=== PATIENT | male | born 1945 | race Caucasian/White ===

== ENCOUNTER 2025-09-13 13:03 | Emergency (ER) | payer MEDICARE, SELFPAY ==
[2025-09-13] VITALS (20 sets, daily range): BP systolic 125–148; BP diastolic 76–80; PULSE 63–90; RESP 14–20; TEMP 37.4; O2SAT 88–97; BMI 26.5
--- NOTE | 2025-09-13 13:23 | ED.BACK ---
HPI - Back Pain/Injury General Time Seen by Provider: 13:23 Date Seen: 09/13/25 Chief Complaint: Back Injury/Pain Stated Complaint: fell on 09/09 - back pain Time Seen by Provider: 09/13/25 13:18 Source: patient, family, RN notes reviewed and old records reviewed Mode of arrival: ambulatory Limitations: no limitations History of Present Illness HPI Narrative: Case is a very pleasant 80-year-old gentleman currently on baby aspirin and amlodipine who comes to the emergency room for evaluation regarding ongoing back pain after a fall. Case notes that he was up in the attic and slipped and when he fell he landed on his back and did hit his head. He had no loss of consciousness and does have a little scrape on his head. Denies any neck pain today. Unfortunately, he has had continued significant back pain. In the initial days after the injury on September 09 that he had difficulty with bowel movements. He has now been on a stool softener and did have many bowel movements yesterday and today. He denies lower extremity numbness or tingling. He has not had fever or chills. Has not noticed any blood in his urine. Any movement greatly increases his discomfort and standing also causes him significant pain. He is accompanied by his and daughter here today. He did take an oxycodone 5 mg last night. He has not had any pain medication today. Related Data Home Medications ?Medication ?Instructions ?Recorded ?Confirmed amlodipine 10 mg tablet 10 mg PO DAILY 09/13/25 09/13/25 ibuprofen 600 mg tablet 600 mg PO 3XD 09/13/25 09/13/25 oxycodone 5 mg tablet mg PO 09/13/25 senna-docusate sodium tablet tab PO 09/13/25 Allergies Allergy/AdvReac Type Severity Reaction Status Date / Time No Known Drug Allergies Allergy Verified 09/13/25 13:17 Review of Systems Status of ROS: Reports: 10 or more systems reviewed and unremarkable except as noted in History and below Const: Denies: fever or chills Eyes: Denies: change in vision ENMT: Denies: neck pain or throat swelling Cardio: Denies: chest pain, lightheadedness or shortness of breath with exertion Resp: Denies: shortness of breath or cough GI: Reports: constipation; Denies: abdominal pain, nausea, vomiting or blood in stool : Denies: painful urination Musculo: Reports: back pain; Denies: neck pain, extremity pain, extremity swelling or joint pain Neuro: Denies: headache, numbness in extremities or weakness in extremities Allergy/Immuno: Denies: throat swelling Exam Narrative: Exam Narrative: Alert and oriented. Detailed in his explanation of the fall. Slight right eyelid droop. EOM is full. Face otherwise symmetrical. On the parietal scalp he has a superficial scab. No surrounding step-offs. Mid no midline cervical tenderness, range of motion is full. Heart with regular rate and rhythm and lungs are clear. Abdomen is soft nontender. Lower extremities show symmetrical strength bilaterally palpation of the back shows pain with palpation over the T10-11 12 area less so over L1-L2. Also has right flank tenderness. At this time unable to set him up to do the exam because of discomfort. Will need to visualize this area as well. Const: Vital Signs, click to edit/add: Vital Signs - 24 hr 09/13/25 13:19 09/13/25 15:20 09/13/25 15:45 Temperature 99.4 F Pulse Rate [Pulse Oximeter] 90 77 Respiratory Rate 20 16 Blood Pressure [Ri ght Upper Arm] 148/80 H 125/76 Pulse Oximetry 96 92 88 Oxygen Delivery Me thod Room Air Room Air Room Air Oxygen Flow Rate 09/13/25 15:55 09/13/25 17:20 Temperature Pulse Rate [Pulse Oximeter] 80 Respiratory Rate 14 Blood Pressure [Ri ght Upper Arm] 135/77 Pulse Oximetry 96 96 Oxygen Delivery Me thod Nasal Cannula Nasal Cannula Oxygen Flow Rate 2 2 Documenting provider has reviewed patient's vital signs: yes Course Course ED Course: Differential diagnosis includes but is not limited to thoracic fracture, lumbar fracture, renal injury, subdural hematoma. Have significant concerns regarding a thoracic fracture with retropulsion as patient has been experiencing constipation. Pain is also increased with standing. Will place IV, do a head CT, chest abdomen and pelvis with contrast as well as check labs to include CBC and comprehensive. Will also check urinalysis. Patient requesting pain medication. He did take 5 mg of oxycodone last night this he did bring a tablet from home and he will take this now. Reevaluation(s) Reevaluation #1: unfortunately, CT does show 25% L1 compression fracture. Patient has significant pain with any movement. Have given him a dose of morphine on top of the oral oxycodone. At rest he does pretty well with pain level 3-4. However any movement greatly exacerbates his pain. Consultations Consultation #1: I had the pleasure of speaking to [facility] ED physician Dr. Escobar. We were able to push the films to [facility] for Neurosurgery and the ER doc to view. I did ask specifically if this particular injury needs a TLSO and that is what [facility] would do. I then spoke with our own hospitalist who notes that we can take measurements for this but it takes days in order to get the brace made. With this I strongly suggest patient go to [facility] for both brace fitting as well as Neurosurgery consultation. Vital Signs Vital signs: Initial Vital Signs Temperature 99.4 F 09/13/25 13:19 Temperature Source Temporal Artery Scan 09/13/25 13:19 Pulse Rate 90 09/13/25 13:19 Respiratory Rate 20 09/13/25 13:19 Blood Pressure 148/80 H 09/13/25 13:19 Blood Pressure Mean 102 09/13/25 13:19 Pulse Oximetry 96 09/13/25 13:19 Oxygen Delivery Method Room Air 09/13/25 13:19 Vital Signs Temperature 99.4 F 09/13/25 13:19 Pulse Rate 90 09/13/25 13:19 Respiratory Rate 20 09/13/25 13:19 Blood Pressure 148/80 H 09/13/25 13:19 Pulse Oximetry 96 09/13/25 13:19 Oxygen Delivery Method Room Air 09/13/25 13:19 Temperature 99.4 F 09/13/25 13:19 Pulse Rate 80 09/13/25 17:20 Respiratory Rate 14 09/13/25 17:20 Blood Pressure 135/77 09/13/25 17:20 Pulse Oximetry 96 09/13/25 17:20 Oxygen Delivery Method Nasal Cannula 09/13/25 17:20 Oxygen Flow Rate 2 09/13/25 17:20 Medications Administered Medications: Discontinued Medications Generic Name Dose Route Start Last Admin Trade Name Freq PRN Reason Stop Dose Admin Hydromorphone HCl 0.5 mg 09/13/25 20:02 09/13/25 20:25 Hydromorphone 0.5 Mg/0.5 Ml Inj IVP 09/13/25 20:03 0.5 mg ONCE ONE Administration Morphine Sulfate 4 mg 09/13/25 15:01 09/13/25 15:29 Morphine 4 Mg/Ml Inj IVP 09/13/25 15:02 4 mg ONCE ONE Administration Ondansetron HCl 4 mg 09/13/25 15:01 09/13/25 15:29 Ondansetron 2 Mg/Ml Inj IVP 09/13/25 15:02 4 mg ONCE ONE Administration Tetanus/Diphtheria Toxoids Adsorbed 0.5 ml 09/13/25 19:46 09/13/25 20:41 Tetanus-Diphtheria Toxoids/Pf 0.5 Ml Syringe IM 09/13/25 19:47 0.5 ml .ONCE ONE Administration MDM - Back Pain/Injury MDM Narrative Medical decision making narrative: 1. L1 compression fracture traumatic- patient noted fall on September 09. No lower extremity symptoms but had experienced significant constipation until yesterday. He has been trying to use oxycodone at home but still has significant pain. I do think he needs to be admitted for pain control. I did speak with her own hospitalist who notes that obtaining TLSO is challenging and may take days here. Thus, we will transfer to [facility] for specialty consultation. We have push the images to their site. Patient has receiving morphine and oral oxycodone here in the ED. this pain appears to be coming back and prior to transfer will use Dilaudid 0.5 mg IV. 2. Fall- no other intra-abdominal injuries noted on CT which was done with IV contrast of the chest abdomen and pelvis. In addition head CT did not show any evidence of subdural hematoma or other acute injury. Laboratory values were reassuring with a hemoglobin of 13.4, normal white count, normal electrolyte panel, normal creatinine of 0.8 N no evidence of hematuria on urinalysis. 3. Tetanus updated-patient thinks has been greater than 7 years since his last tetanus. He does have a superficial laceration on his right thenar eminence measuring approximately 1 cm. It is hemostatic. Certainly he was in the attic and this could have been secondary to a delroy nail. We have elected to give him a TD here in the ER. 3. Disposition- transfer via ground ALS ambulance to [facility]. Dr. Escobar accepting. Patient will travel via ground ALS as he may need medications. Addendum: Did go back into room to visualize patient's back and he has departed to [facility]. He did receive additional Dilaudid 0.5 mg prior to transfer. Lab Data Attestation: I reviewed the patient's lab results. Labs: Lab Results 09/13/25 09/13/25 09/13/25 Range/Units 13:40 13:50 14:41 WBC 9.65 (4.50-11.00) K/uL RBC 4.12 L (4.30-5.90) m/uL Hgb 13.4 L (13.5-17.5) gm/dL Hct 40.2 (37.0-53.0) % MCV 98 (80-100) fL MCH 33 (26-34) pg MCHC 33 (32-36) gm/dL RDW Coeff of Stephan 12.7 (11.5-15.5) % Plt Count 196 (140-440) K/uL Neut % (Auto) 74.8 H (42.0-72.0) % Lymph % (Auto) 14.6 L (20-44) % Custer % (Auto) 8.7 (0.0-11.0) % Eos % (Auto) 1.1 (0.0-7.0) % Baso % (Auto) 0.6 (0.0-3.0) % Neut # (Auto) 7.20 H (1.7-7.0) K/uL Lymph # (Auto) 1.40 (0.90-2.90) K/uL Custer # (Auto) 0.80 (0.00-0.90) K/UL Eos # (Auto) 0.11 (0.00-0.50) K/uL Baso # (Auto) 0.06 (0.00-0.30) K/uL Abs Immat Gran (auto) 0.02 (0.00-0.30) K/uL Imm/Tot Granulo (auto) 0.2 % Sodium 134 L (135-149) mmol/L Potassium 3.8 (3.6-5.1) mmol/L Chloride 101 (96-114) mmol/L Carbon Dioxide 29 (20-32) mmol/L Anion Gap 4 L (7-15) mEq/L BUN 16 (7-30) mg/dL Creatinine 0.8 (0.5-1.5) mg/dL Estimated Creat Clear 51.39 Estimated GFR 88 ml/min Glucose 125 H (60-115) mg/dL Calcium 9.1 (8.4-10.6) mg/dL Total Bilirubin 1.9 H (0.1-1.5) mg/dL AST 23 (12-35) U/L ALT 14 (4-50) U/L Alkaline Phosphatase 65 (40-150) U/L Total Protein 6.8 (6.0-8.3) g/dL Albumin 4.0 (3.3-5.0) g/dL Urine Color Yellow (Yellow) Urine Appearance Clear (Clear) Urine pH 6.0 (5.0-8.5) Ur Specific Divide 1.010 (1.000-1.030) Urine Protein Negative (Negative) Urine Glucose (UA) Negative (Negative) Urine Ketones Negative (Negative) Urine Blood Negative (Negative) Urine Nitrite Negative (Negative) Urine Bilirubin Negative (Negative) Urine Urobilinogen 0.2 (0.2-1.0) Ur Leukocyte Esterase Negative (Negative) Urine RBC 0-2 (0-2) Urine WBC 0-2 (0-5) Ur Squamous Epith Cells Few (None-Few) Urine Bacteria None (None) POC Creatinine 0.9 (0.6-1.3) mg/dl Imaging Data CT scan - head: Attestation: I have reviewed the pertinent imaging results. My impression: I do not note any intracranial bleed or skull fracture. Radiologist's impression: No acute intracranial hemorrhage. No mass effect or midline shift. No hydrocephalus or extra-axial collections. Patchy white matter hypoattenuation, typical for chronic microvascular ischemic change. No acute osseous abnormalities. Moderate rightward nasal septal deviation. Mastoid air cells and paranasal sinuses are clear. Normal soft tissues. IMPRESSION: IMPRESSION: 1. No acute intracranial abnormalities. CT Chest/Ab/Pelvis: Attestation: I have reviewed the pertinent imaging results. My impression: Obvious compression fracture T12 verses L1. Radiologist's impression: No thyroid nodules. No thoracic lymphadenopathy. The heart is normal in size. No pericardial effusion. Minimal coronary artery calcifications. The thoracic aorta and pulmonary artery are normal in caliber. No aortic dissection or appreciable pulmonary embolism. No focal airspace consolidation, pleural effusion, or pneumothorax. Elevation of the bilateral hemidiaphragms with mild adjacent and dependent atelectatic lung with low lung volumes. No emphysematous or fibrotic changes. No suspicious pulmonary nodules or masses. The airways are clear. Abdomen/pelvis: The liver, gallbladder and biliary system, spleen, pancreas, adrenal glands, kidneys, ureters, bladder, seminal vesicles, prostate, and imaged external genitalia are without acute abnormality. Incidental note of calcified granulomas throughout the spleen, fatty atrophy of the pancreas, multiple simple appearing parapelvic renal cysts, and mild prostatomegaly. No evidence of bowel obstruction, inflammation, or acute traumatic injury. No CT evidence of acute appendicitis. Scattered colonic diverticula without CT evidence of acute diverticulitis. Redundant sigmoid colon. No intra-abdominal or intrapelvic free air, free fluid, or abscess. No abdominopelvic lymphadenopathy. Mild calcific atherosclerosis of the aortoiliac system. Soft tissue/musculoskeletal: Minimal right gynecomastia. Tiny fat containing bilateral inguinal hernias. Acute compression fracture deformity of the L1 vertebral body with approximately 25 percent vertebral body height loss anteriorly. No retropulsed fracture fragments. There are 6 lumbar vertebral bodies. No additional fractures or malalignment. Mild multilevel degenerative changes throughout the spine. No suspicious osseous lesions. Impression: 1. Acute compression fracture deformity of the L1 vertebral body with approximally 25 percent vertebral body height loss anteriorly. No retropulsed fracture fragments. 2. Additional incidental findings as detailed above. Discharge Plan Discharge Clinical Impression: Compression fracture, Tetanus toxoid inoculation Patient Disposition: [facility] Discharge Location: [facility] Condition: Improved
--- NOTE | 2025-09-13 13:40 | CRLHL7_ITS ---
For Patients: As a result of the Century Cures Act, medical imaging exams and procedure reports are released immediately into your electronic medical record. You may view this report before your referring provider. If you have questions, please contact your health care provider. INDICATION: Fall. Head trauma. TECHNIQUE: CT of the head without contrast. Coronal and sagittal reformats are included. COMPARISON: None. FINDINGS: No acute intracranial hemorrhage. No mass effect or midline shift. No hydrocephalus or extra-axial collections. Patchy white matter hypoattenuation, typical for chronic microvascular ischemic change. No acute osseous abnormalities. Moderate rightward nasal septal deviation. Mastoid air cells and paranasal sinuses are clear. Normal soft tissues. IMPRESSION: IMPRESSION: 1. No acute intracranial abnormalities. Please note that all CT scans at this facility use dose modulation, iterative reconstruction, and/or weight-based dosing when appropriate to reduce radiation dose to as low as reasonably achievable. Dictated by Ra Barillas MD @ 09/13/2025 2:51:36 PM (Electronically Signed)
--- NOTE | 2025-09-13 13:40 | CRLHL7_ITS ---
For Patients: As a result of the Century Cures Act, medical imaging exams and procedure reports are released immediately into your electronic medical record. You may view this report before your referring provider. If you have questions, please contact your health care provider. Indication: Fall with pain in mid back low back and right flank Technique: CT chest/abdomen/pelvis with IV contrast utilizing 80 mL Isovue 370 Comparison: None Findings: Chest: No thyroid nodules. No thoracic lymphadenopathy. The heart is normal in size. No pericardial effusion. Minimal coronary artery calcifications. The thoracic aorta and pulmonary artery are normal in caliber. No aortic dissection or appreciable pulmonary embolism. No focal airspace consolidation, pleural effusion, or pneumothorax. Elevation of the bilateral hemidiaphragms with mild adjacent and dependent atelectatic lung with low lung volumes. No emphysematous or fibrotic changes. No suspicious pulmonary nodules or masses. The airways are clear. Abdomen/pelvis: The liver, gallbladder and biliary system, spleen, pancreas, adrenal glands, kidneys, ureters, bladder, seminal vesicles, prostate, and imaged external genitalia are without acute abnormality. Incidental note of calcified granulomas throughout the spleen, fatty atrophy of the pancreas, multiple simple appearing parapelvic renal cysts, and mild prostatomegaly. No evidence of bowel obstruction, inflammation, or acute traumatic injury. No CT evidence of acute appendicitis. Scattered colonic diverticula without CT evidence of acute diverticulitis. Redundant sigmoid colon. No intra-abdominal or intrapelvic free air, free fluid, or abscess. No abdominopelvic lymphadenopathy. Mild calcific atherosclerosis of the aortoiliac system. Soft tissue/musculoskeletal: Minimal right gynecomastia. Tiny fat containing bilateral inguinal hernias. Acute compression fracture deformity of the L1 vertebral body with approximately 25 percent vertebral body height loss anteriorly. No retropulsed fracture fragments. There are 6 lumbar vertebral bodies. No additional fractures or malalignment. Mild multilevel degenerative changes throughout the spine. No suspicious osseous lesions. Impression: 1. Acute compression fracture deformity of the L1 vertebral body with approximally 25 percent vertebral body height loss anteriorly. No retropulsed fracture fragments. 2. Additional incidental findings as detailed above. Please note that all CT scans at this facility use dose modulation, iterative reconstruction, and/or weight-based dosing when appropriate to reduce radiation dose to as low as reasonably achievable. Dictated by Reymundo Olivo MD @ 09/13/2025 3:08:54 PM (Electronically Signed)
[2025-09-13 14:00] LABS: Hematocrit* 40.2 % (37.0-53.0); Hemoglobin* 13.4 gm/dL (13.5-17.5); Immature Granulocytes Abs Auto 0.02 K/uL (0.00-0.30); Immature Granulocytes Pct Auto 0.2 %; Mean Corpuscular HGB Conc 33 gm/dL (32-36); Mean Corpuscular Hemoglobin 33 pg (26-34); Mean Corpuscular Volume 98 fL (80-100); RDW Coefficient of Variation % 12.7 % (11.5-15.5); Red Blood Count* 4.12 m/uL (4.30-5.90); White Blood Count* 9.65 K/uL (4.50-11.00)
[2025-09-13 14:08] LABS: Lymphocytes Absolute Auto 1.40 K/uL (0.90-2.90); Slide Review Reflex No
[2025-09-13 14:12] LABS: Creatinine, Point-of-Care* 0.9 mg/dl (0.6-1.3)
--- OUTSIDE RECORDS SUMMARY | 2025-09-13 14:13 | XMS_ITS | Clinical Summary ---
Author Organization [employer] [facility] Address [address] [place] [id number] Care Team Providers Care Child Care Team Lead Name Role Phone Pcp, No Primary Care Provider Unavailabl e Allergies Active AllergyReactionsCriticalityNoted DateCommentsErythromycinNausea Only 01/28/2007 Medications MedicationSigDispense QuantityRefillsLast FilledStart DateEnd DateStatus amLODIPine (NORVASC) 10 mg tablet Indications:HypertensionTake 1 Tablet (10 mg) by mouth once daily. 90 tablet. ctive polyethylene glycoL (MIRALAX) 17 gram/dose powder Indications:Constipation, unspecified constipation typeMix 1 scoop (17 g) in liquid then take by mouth once daily if needed for Constipation. 3 jar ctive mv-min/folic/K1/lycopen/lutein (CENTRUM SILVER MEN ORAL) Take by mouth.ActiveHospital, Clinic, or Other Facility Administered Medication Ordered DoseRouteFrequencyStart DateEnd DateStatus triamcinolone acetonide (KENALOG) injection 10 mg Indications:DJD (degenerative joint disease), ankle and foot, right10 mgIArtic ONE TIME5110/20/2024Ended Active Problems Patient Care Coordination No te Formatting of this note migh t be different from the original. My Personal Action Plan: Contacts: Masha Squires RN Launch Manager [phone] Ivo - Care Guide [phone] After Hours/Weekends: For non-urgent questions (General Information): [phone] For Urgent Medical Concerns (Triage): [phone] Call if/when any of the following Signs and/or symptoms are present: Temperature greater than 100.4 Persistent nausea and vomiting Watery diarrhea (at least 3 bowel movements per day for 1 or 2 days) Severe uncontrolled pain Redness, tenderness, or signs of infection (pain, swelling, redness, odor or green/yellow dischargearound the site) Difficulty breathing, headache or visual disturbances Hives Persistent dizziness or light-headedness Extreme fatigue In an emergency, call 911 or go to an Emergency Department at a nearby hospital a. Advance Care Plan: i. Goals and Wishes Documented in Chart No ii. Spokesperson: Name and telephone number: No one identified at this time iii Signed Health Care Directive in Chart No ProblemNoted DateDiagnosed DateBPH with urinary uzgylwoekdc12/28/2025rthritis of right ankle07/28/2025GERD (gastroesophageal reflux disease)01/29/2014 Abdominal zgiplmnl26/29/2013Mixed ycisloihykpbll20/24/2008Other psoriasis 05/22/2007Unspecified essential xrfluxfkwvzo69/30/2007Dyspepsia and other specified disorders of function of nqehdku2201/28/2007 Resolved Problems ProblemNoted DateDiagnosed DateResolved DateRoutine general medical examination at a health care oivebbfi96 Overview (08/28/2011): Normal colonoscopy 2004. Alcohol srjwfjfrky252Depressive disorder, not elsewhere ovpgbzsbiu00/30/Migraine, unspecified, without mention of intractable migraine without mention of status gvakhdmtuhs86/30/ Unstable znhcmw1510/04/2011bnormal cardiovascular stress test10/04/2011 Overview (08/18/2011): -Lexiscan myoview 08/02/11: Small to medium area mild ischemia mid and apical inferior and inferoseptal kearney. EF 68%. Encounters DateTypeDepartmentCare ZyfiSqwoyixruwi70/09/2025 2:10 PM CSTPhone Office Visit [address] [phone] Bina Garrido MD Urinary Problem (Frequent nighttime urination)09/04/2025Telephone [facility] [address] [facility] [place] [phone] Pcp, No Rxojrogla66/20/2025 2:15 PM CSTOffice Visit [facility] [address] [address] [place] [phone] Harpreet Griffin, DPM Recheck (Right Ankle)08/20/20253699Gohlck91/28/2025 3:50 PM CDTOffice Visit [facility] [address] [facility] [place] [phone] Bina Garrido MD Arm Pain/problem (Right arm pain, tingling feeling); Urinary Problem (Frequent urination); Knee Pain/problem (Right knee pain); Foot Problem (Right foot pain); Sleep Problem (Having trouble sleeping)07/28/2025Travelfrom Last 3 Months Immunizations ImmunizationAdministration DatesNext DueCOVID-19 vaccine ([employer] 30mcg/0.3mL) MD NELYV111/14/2020,12/27/2020,12/06/2020Influenza Virus, Unspecified 08/01/2022,06/28/2021,08/01/2019,07/01/2018,08/29/2007,07/19/2006,07/17/2005, 08/30/2004,2003,08/18/2002,08/06/2000,07/19/1999,08/25/1998Influenza, High-dose Rnfaggpmyve17/06/2019,07/26/2018,08/17/2017,08/01/2016,08/31/2015 Influenza, High-dose Quadrivalent Ztdinnkdquf35/28/2023Influenza, IIV3 (Age 6-35 mos)06/27/2012,09/01/2010,07/18/2009Influenza, IIV3 (Age >=3 years)08/01/2019, 07/01/2018,07/16/2014,07/17/2013,07/28/2011,08/19/2008,08/01/1996Influenza, Inactivated AIIV4 (Age 65+ Years) Preserv Free07/05/2020Influenza, Inactivated IIV3 (Age 65+ Years) Preserv Free06/25/2025,4Pneumococcal Conj 20- valent (Prevnar 20)2Pneumococcal Poly,23-Valent (Pneumovax)01/29/2014, 03/28/2007Pneumococcal conj 13-Valent (Prevnar 13)02/16/2017Td (Age >=7 Years) 08/01/1996Td, Preservative Free (age >= 7 Years)03/28/2007Tdap03/28/2017, 08/31/2015Zoster (Shingrix-RZV, recombinant)12/29/2021,06/28/2021Zoster (Zostavax-ZVL, live)07/29/2013,03/28/2007 Family History Medical HistoryRelationNameCommentsHypertensionMother& EDEMARelationNameStatus CommentsBrother 1Deceased (Age 70s)CancerBrother 2Deceased (Age 70s)Unknown FatherDeceased (Age 92)MotherDeceased (Age 102)Old AgeSisterDeceased (Age 70s) Diabetes Social History Tobacco UseTypesPacks/DayYears UsedDateSmoking Tobacco: NeverSmokeless Tobacco: FormerSnuffQuit: 08/15/2011 Tobacco Cessation:Counseling Given: Yes Comments:quit chewing 1.5 years ago Alcohol UseStandard Drinks/WeekCommentsYes0.8 (1 standard drink = 0.6 oz pure alcohol)10-15 drinks per week alcohol and beerPHQ-2AnswerDate RecordedPHQ-2 TOTAL DSAFO963Social ConnectionsAnswerDate RecordedFrequency of Communication with Friends and Bpqqlo879lcohol UseAnswerDate Recorded How often do you have a drink containing alcohol?How many drinks containing alcohol do you have on a typical day when you are drinking?1 09/08/2025How often do you have five or more drinks on one occasion? Financial Resource StrainAnswerDate RecordedDifficulty of Paying Living Expenses 2Difficulty of Paying Living ExpensesNot on file03/06/2022Food InsecurityAnswerDate RecordedWorried About Running Out of Food in the Last Year1 03/06/2022Transportation NeedsAnswerDate RecordedLack of Transportation (Medical)Housing StabilityAnswerDate RecordedUnable to Pay for Housing in the Last Pcll943ex and Gender InformationValueDate Recorded Sex Assigned at BirthNot on fileLegal FfxHksm7610/14/2012 5:22 AM CSTGender IdentityNot on fileSexual OrientationNot on fileOccupationIndustryJob Start Date Job End DateRetiredNot on fileNot on fileNot on file Last Filed Vital Signs Vital SignReadingTime TakenCommentsBlood Kascngyp703/7810 4:07 PM CDT Bczio838708/20/2025 2:22 PM SOKDrlpsgzsxtz51.8 ??C (98.2 ??F)03/12/2025 12:15 PM CDTRespiratory Pwyi507803/12/2025 1:45 PM CDTOxygen Shududnnnu65%08/20/2025 2:22 PM CSTInhaled Oxygen Concentration--Pkqfdn03.8 kg (165 lb)08/20/2025 2:22 PM PROFESSOR/NURSE ANESTHETIST Eilknp506 cm (5' 4.96)07/28/2025 4:07 PM CDTBody Mass Index27.4907/28/2025 4:07 PM CDT Plan of Treatment DateTypeDepartmentCare Team (Latest Contact Info)Yypjrodpmkt03/30/2026 12:00 PM CSTOffice Visit [facility] [address] [place] [phone] Ammy Payton PA [address] [place] [address] Health MaintenanceDue DateLast DoneCommentsRSV vaccine for adults or (1 - 1-dose 75+ series)2018Medicare Wellness for age 65+01/29/2025 01/29/2024, 01/18/2021, 01/28/2019, Additional history existsCOVID-19 vaccine series (2024- season)/11/2024, 09/05/2024, 08/28/2023, Additional history existsBMI (ht and wt on same day) for age 18+07/28/2026 07/28/2025, 01/29/2024, 08/17/2023, Additional history existsDepression screening for age 12+, 01/29/2024, 03/06/2022, Additional history existsTetanus , 08/31/2015, 03/28/2007, Additional history existsZoster (shingles) series for age 50+Completed 12/29/2021, 06/28/2021, 07/29/2013, Additional history existsPneumococcal series for age 50+Izfmvcxnt03/01/2022, 02/16/2017, 01/29/2014, Additional history existsInfluenza CqmfkplDdsafthyn85/25/2025, 09/05/2024, 08/01/2022, Additional history existsHepatitis B series for 19+Aged OutNo longer eligible based on patient's age to complete this topic Medical Devices ImplantedTypeAreaManufacturerDevice IdentifierShelf Expiration DateModel / Serial / LotMesh Inguinal Lt [id number] 3-D Max Mid Xlg - [id number] Implanted:Qty: 1 on 03/12/2025 [facility] InguinalDavol [id number] / / [id number] Procedures Procedure NamePriorityDate/TimeAssociated DiagnosisCommentsHEMOGLOBINRoutine 07/28/2025 5:04 PM CDT Anemia due to acute blood loss BASIC METABOLIC BVGXIIceiofs48/28/2025 5:04 PM CDT Unspecified essential hypertension PSA DCSPQNvptezk67/28/2025 5:04 PM CDT BPH with urinary obstruction from Last 3 Months Results * HEMOGLOBIN (07/28/2025 5:04 PM CDT)ComponentValueRef RangeTest MethodAnalysis TimePerformed AtPathologist QfliecdvyOBWZIDNAFW73.813.2 - 17.1 g/dL07/29/2025 3:02 AM CDTQUEST QHVQVBQELKUAOF78.980.0 - 100.0 fL07/29/2025 3:02 AM CDTQUEST DIAGNOSTICSSpecimen (Source)Anatomical Location / LateralityCollection Method / VolumeCollection TimeReceived TimeBloodBLOOD SPECIMEN / UnknownQuest Collect / Adnsaog9707/28/2025 5:04 PM CDT1 5:04 PM CDT Narrative Authorizing ProviderResult TypeResult StatusBina Garrido MD HEMATOLOGYFinal ResultPerforming OrganizationAddressCity/State/ZIP CodePhone Number Responsible City [place] [phone], * (ABNORMAL) PSA TOTAL (DIAG OR SCREEN) (07/28/2025 5:04 PM CDT)ComponentValue Ref RangeTest MethodAnalysis TimePerformed AtPathologist SignaturePSA, TOTAL 8.16(H)< OR = 4.00 ng/mL07/29/2025 4:47 AM CDTQUEST DIAGNOSTICSComment: The total PSA value from this assay system is standardized against the WHO standard. The test result will be approximately 20% lower when compared to the equimolar-standardized total PSA (Anne-Marie Vic). Comparison of serial PSA results should be interpreted with this fact in mind. This test was performed using the Siemens chemiluminescent method. Values obtained from different assay methods cannot be used interchangeably. PSA levels, regardless of value, should not be interpreted as absolute evidence of the presence or absence of disease. Specimen (Source)Anatomical Location / LateralityCollection Method / Volume Collection TimeReceived TimeBloodBLOOD SPECIMEN / UnknownQuest Collect / Unknown 07/28/2025 5:04 PM CDT1 5:04 PM CDT Narrative Authorizing ProviderResult TypeResult StatusBina Garrido MD CHEMISTRYFinal ResultPerforming OrganizationAddressCity/State/ZIP CodePhone Number [facility] [place] [id number] [place] [address], * (ABNORMAL) BASIC METABOLIC PANEL (07/28/2025 5:04 PM CDT)ComponentValueRef RangeTest MethodAnalysis TimePerformed AtPathologist PsrsbqhwlHCLSLV069584 - 146 mmol/L1 4:30 AM CDTQUEST DIAGNOSTICSPOTASSIUM4.53.5 - 5.3 mmol/L 07/29/2025 4:30 AM CDTQUEST DIAGNOSTICSCARBON YDWVGZD4030 - 32 mmol/L 07/29/2025 4:30 AM CDTQUEST LEVYJOVFRBVCLWVNRK42(L)65 - 99 mg/dL07/29/2025 4:30 AM CDTQUEST DIAGNOSTICSComment: ? Fasting reference interval CALCIUM9.68.6 - 10.3 mg/dL07/29/2025 4:30 AM CDTQUEST DIAGNOSTICSCREATININE1.04 0.70 - 1.22 mg/dL07/29/2025 4:30 AM CDTQUEST DIAGNOSTICSBUN/CREATININE RATIOSEE NOTE:6 - 22 (calc)07/29/2025 4:30 AM CDTQUEST DIAGNOSTICSComment: ?? Not Reported: BUN and Creatinine are within ?? reference range. ? EGFR72> OR = 60 mL/min/1.46u14707/29/2025 4:30 AM CDTQUEST DIAGNOSTICSUREA NITROGEN (BUN)167 - 25 mg/dL07/29/2025 4:30 AM CDTQUEST DIAGNOSTICSELECTROLYTE TORWKGE14 - 17 mmol/L (calc)07/29/2025 4:30 AM CDTQUEST DOTDHOVCEIIYFVVDNSK42193 - 110 mmol/L1 4:30 AM CDTQUEST DIAGNOSTICSSpecimen (Source)Anatomical Location / LateralityCollection Method / VolumeCollection TimeReceived TimeBlood BLOOD SPECIMEN / UnknownQuest Collect / Avvroul8607/28/2025 5:04 PM CDT1 5:04 PM CDT Narrative Authorizing ProviderResult TypeResult StatusBina Garrido MD CHEMISTRYFinal ResultPerforming OrganizationAddressCity/State/ZIP CodePhone Number [facility] [address] [address], [place] [phone] from Last 3 Months Insurance Advance Directives TypeDate RecordedPatient RepresentativeExplanationHealthcare Mpoyqystu83/18/2021 7:17 [id number] * Full Code (Latest Code Status on File) Date ActivatedDate InactivatedComments03/12/2025 8:05 AM03/12/2025 4:52 PMQuestion AnswerCommentsCode Status Discussion:* Unable to Assess Preferences, Provider to review later * Full Code Date ActivatedDate EnhxwultnnfYptctfin03/18/2011 12:34 PM08/18/2011 9:15 PM Care Teams Team MemberRelationshipSpecialtyStart DateEnd Date Pcp, No . PCP - General04/06/25
[2025-09-13 14:17] LABS: Albumin* 4.0 g/dL (3.3-5.0); Chloride* 101 mmol/L (96-114); Potassium* 3.8 mmol/L (3.6-5.1); Sodium* 134 mmol/L (135-149)
[2025-09-13 14:20] LABS: Alanine Aminotransferase* 14 U/L (4-50); Alkaline Phosphatase* 65 U/L (40-150); Anion Gap 4 mEq/L (7-15); Aspartate Amino Transferase* 23 U/L (12-35); Bilirubin Total* 1.9 mg/dL (0.1-1.5); Blood Urea Nitrogen* 16 mg/dL (7-30); Calcium* 9.1 mg/dL (8.4-10.6); Carbon Dioxide* 29 mmol/L (20-32); Creatinine* 0.8 mg/dL (0.5-1.5); Est. Creatinine Clearance* 51.39; Estimated Glomerular Filt Rate 88 ml/min; Glucose* 125 mg/dL (60-115); Total Protein* 6.8 g/dL (6.0-8.3)
[2025-09-13 14:46] LABS: Appearance Urine Clear (Clear)
[2025-09-13] MEDS: ONDANSETRON 2 MG/ML inj 4 MG IVP (15:29)
[2025-09-13] MEDS: MORPHINE 4 MG/ML INJ IVP (15:29)
[2025-09-13] MEDS: TETANUS-DIPHTHERIA TOXOIDS/PF 0.5 ML SYRINGE IM (20:41)
== END 2025-09-13 21:08 | disposition short-term general hospital (02) ==
PROVIDERS: Emergency Provider Family Medicine
DX: S32.019A Unspecified fracture of first lumbar vertebra, initial encounter for closed fracture (principal); S00.01XA Abrasion of scalp, initial encounter; W01.198A Fall on same level from slipping, tripping and stumbling with subsequent striking against other object, initial encounter; Y92.008 Other place in unspecified non-institutional (private) residence as the place of occurrence of the external cause; Z23 Encounter for immunization
CPT/HCPCS: 36415; 70450; 71260; 74177; 80053; 81001; 82565; 85025; 90471; 90714; 96374; 96375; 99284; 99285; J1171; J2270; J2405; Q9967

== ENCOUNTER 2025-09-13 20:47 | Outpatient (CLI) | payer MEDICARE, SELFPAY | END 2025-09-13 20:48 | disposition home or self-care (01) | LOC: AMB 09-16 02:45 | PROVIDERS: Visit Provider Family Medicine | DX: S32.019A Unspecified fracture of first lumbar vertebra, initial encounter for closed fracture (principal) | CPT/HCPCS: A0425; A0427 ==